=== PATIENT | female | born 1935 | race Caucasian/White ===

== ENCOUNTER 2018-10-09 10:17 | Observation (INO) | payer OTHER, BC ==
[2018-10-09 11:23] LABS: PLATELET COUNT 220 10^3/uL (150-400)
--- NOTE | 2018-10-09 11:51 | EDPHY ---
H & P Stated Complaint: facial droop last night Time Seen by Provider: 10/09/18 11:15 HPI/ROS: CHIEF COMPLAINT: Right facial droop HISTORY OF PRESENT ILLNESS: 82-year-old female with hypertension and CAD presents with right facial droop. Onset of moderate right facial droop at 1800 yesterday evening while sitting with her son. Associated with slurred speech. The episode lasted several minutes and then completely resolved. No extremity weakness or numbness. No prior similar symptoms. No alleviating or aggravating factors. Takes an aspirin daily. REVIEW OF SYSTEMS: complete 10 point ROS reviewed and is negative except for the noted elements in the HPI - Personal History Current Tetanus/Diphtheria Vaccine: Yes Current Tetanus Diphtheria and Acellular Pertussis (TDAP): Yes - Medical/Surgical History Hx Asthma: No Hx Chronic Respiratory Disease: No Hx Diabetes: No Hx Cardiac Disease: Yes Hx Renal Disease: No Hx Cirrhosis: No Hx Alcoholism: No Hx HIV/AIDS: No Hx Splenectomy or Spleen Trauma: No Other PMH: HTN, thyroidectomy, CAD with stents, hyperlipidemia, tonsilectomy - Social History Smoking Status: Never smoked Alcohol Use: Sober Drug Use: None - Physical Exam Exam: General Appearance: Alert, pleasant Eyes: Right pupil 4 mm, left pupil 3 mm, no conjunctival pallor or injection, EOMI ENT, Mouth: Mucous membranes moist Neck: Normal inspection Respiratory: Lungs are clear to auscultation Cardiovascular: Regular rate and rhythm Gastrointestinal: Abdomen is soft and nontender Neurological: Alert, oriented x3, cranial nerves II through XII intact, motor 5 /5, sensory intact to light touch Skin: Warm and dry Extremities: Nontender, no pedal edema Psychiatric: Mood and affect normal Constitutional: Initial Vital Signs Temperature (C) 36.6 C 10/09/18 10:27 Heart Rate 69 10/09/18 10:27 Respiratory Rate 16 10/09/18 10:27 Blood Pressure 179/124 H 10/09/18 10:27 O2 Sat (%) 94 10/09/18 10:27 O2 Delivery Mode Room Air Allergies/Adverse Reactions: adhesive tape Allergy (Verified 10/09/18 10:27) cat dander Allergy (Verified 10/09/18 13:42) Iodinated Contrast- Oral and IV Dye Allergy (Verified 10/09/18 10:25) morphine Allergy (Verified 10/09/18 13:42) Vomiting oxaprozin [From Daypro] Allergy (Verified 10/09/18 13:42) Vomiting Sulfa (Sulfonamide Antibiotics) Allergy (Verified 10/09/18 13:42) Vomiting Home Medications: Medication Instructions Recorded Aspirin [Aspirin 81mg (*)] 81 mg PO DAILY 10/09/18 C/E/Zn/Cu/OM3/DHA/EPA/LUT/ZEAX 1 each PO DAILY 10/09/18 [Preservision Areds 2 Softgel] Cholecalciferol Vit D3 [Vitamin D3 1,000 units PO DAILY 10/09/18 (*)] Isosorbide Mononitrate [Imdur 30 30 mg PO DAILY@12 10/09/18 mg (*)] Levothyroxine [Synthroid 88 mcg 88 mcg PO DAILY06 10/09/18 (*)] Loratadine 10 mg PO DAILY PRN 10/09/18 Metoprolol Tartrate [Lopressor 25 25 mg PO DAILY 10/09/18 mg (*)] Simvastatin [Zocor] 40 mg PO DAILY18 10/09/18 Clopidogrel Bisulfate [Plavix (*)] 75 mg PO DAILY #30 tab 10/10/18 Medical Decision Making - Diagnostics EKG Interpretation: EKG interpreted by me reveals normal sinus rhythm, rate 60, abnormal R-wave progression, T-wave inversion in aVL. Interpretation: Abnormal EKG ED Course/Re-evaluation: This ipt presents with a right facial droop yesterday, now resolved. c/w TIA. Neuro exam normal today. EKG: NSR, without ischemic changes. CT head: no acute ischemia or hemorrhage. Results d/w pt/family. Neuro exam remains normal. Took ASA today. The hospitalist service was consulted for admission for TIA w/u. Differential Diagnosis: Altered mental status including but not limited to hypoglycemia, infectious process, electrolyte abnormality, head injury, CVA, and intoxicants. - Data Points Laboratory Results: Laboratory Results 10/09/18 10:54 10/09/18 10:54 Medications Given: Discontinued Medications Aspirin (Aspirin) 81 mg PO DAILY [facility] Stop: 04/08/19 08:59 Last Admin: 10/10/18 08:43 Dose: 81 mg Atorvastatin Calcium (Lipitor) 20 mg PO DAILY@1800 [facility] Stop: 04/07/19 17:59 Last Admin: 10/09/18 17:58 Dose: 20 mg Cholecalciferol (Vitamin D) 1,000 units PO DAILY [facility] Stop: 04/08/19 08:59 Last Admin: 10/10/18 08:42 Dose: 1,000 units Clopidogrel Bisulfate (Plavix) 75 mg PO DAILY [facility] Stop: 04/08/19 08:59 Last Admin: 10/10/18 08:43 Dose: 75 mg Enoxaparin Sodium (Lovenox) 40 mg SC DAILY [facility] Stop: 04/08/19 08:59 Last Admin: 10/10/18 08:41 Dose: 40 mg Isosorbide Mononitrate (Imdur) 30 mg PO DAILY@12 [facility] Stop: 04/07/19 14:29 Last Admin: 10/10/18 12:19 Dose: 30 mg Levothyroxine Sodium (Synthroid) 88 mcg PO DAILY06 [facility] Stop: 04/08/19 05:59 Last Admin: 10/10/18 05:10 Dose: 88 mcg Metoprolol Tartrate (Lopressor) 25 mg PO DAILY [facility] Stop: 04/08/19 08:59 Last Admin: 10/10/18 08:42 Dose: 25 mg Multivitamins/Minerals (Preservision Areds2 Formula) 1 each PO DAILY [facility] Stop: 04/08/19 08:59 Last Admin: 10/10/18 08:42 Dose: 1 each Point of Care Test Results: Chemistry 10/09/18 11:24 POC Troponin I 0.01 ng/mL ng/mL (0.00-0.08) Departure - Departure Disposition: [facility] Acute Clinical Impression: Transient cerebral ischemia Qualifiers: Transient cerebral ischemia type: unspecified Qualified Code(s): G45.9 - Transient cerebral ischemic attack, unspecified Condition: Fair
[2018-10-09] MEDS ORDERED: ONDANSETRON DISINTEGRATING 4 MG TAB PO PRN (15:13)
[2018-10-09] MEDS ORDERED: ACETAMINOPHEN 325 MG TAB PO PRN (15:13)
[2018-10-09] MEDS ORDERED: ONDANSETRON 4 MG/2 ML VIAL IVP PRN (15:13)
--- NOTE | 2018-10-09 15:20 | CPEKG ---
Test Reason : OPEN Blood Pressure : / mmHG Vent. Rate : 060 BPM Atrial Rate : 060 BPM P-R Int : 179 ms QRS Dur : 098 ms QT Int : 420 ms P-R-T Axes : 049 -07 077 degrees QTc Int : 420 ms Sinus rhythm Abnormal R-wave progression, early transition Confirmed by Magy Leroy ([id number]) on 10/09/2018 3:19:55 PM Referred By: PHYSICIAN ED Confirmed By:Magy Leroy
--- NOTE | 2018-10-09 15:52 | GHP ---
[f rep st] HISTORY AND PHYSICAL DATE OF ADMISSION: 10/09/2018 CHIEF COMPLAINT: Right-sided facial droop and slurred speech yesterday evening. HISTORY OF PRESENT ILLNESS: The patient is a very nice 82-year-old female with a history of hypertension, hyperlipidemia, and coronary artery disease, who presented to the emergency room to get further evaluation of a right facial droop and slurred speech that occurred at 6:15 p.m. last night. Yesterday evening she was eating dinner with her son. He noticed that her speech was slurred and that she had a right facial droop. She said it lasted for approximately 1 minute and 15 seconds. It then completely resolved. She went and looked at herself in the mirror afterwards and said that she did not see any type of right facial droop and her speech was back to normal. She describes that her lips have been crooked for years and that this is her baseline. She denies any extremity weakness, no numbness. She denies any chest pain. Once in a while, she has shortness of breath while going up the steps, but otherwise does not have this. No changes in her appetite, vision, weight. Overall, she is feeling well. She mainly came for further evaluation because her son was concerned. She describes having a similar episode approximately a month ago where she had a facial droop and some slurred speech, but again that went away. Prior to this one other time, she has had no other symptoms like this. She is from the [facility] and is here visiting her son and family. PAST MEDICAL HISTORY: 1. Hypertension. 2. Coronary artery disease with stents placed in 1998. 3. Hyperlipidemia. 4. Macular degeneration. 5. Hypothyroidism. PAST SURGICAL HISTORY: 1. Thyroidectomy. 2. Tonsillectomy. SOCIAL HISTORY: She lives independently in the [facility]. She has been since 2000. She has 3 children. She does not smoke. She does not drink alcohol. 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 FAMILY HISTORY: Her mom of complications of a stroke at age 90. Her father from complications of a stroke at age 80. ALLERGIES: Adhesive tape; iodine contrast, both oral and IV; morphine allergy; sulfa; Daypro; and cats. HOME MEDICATIONS: Imdur 30 mg daily, aspirin 81 mg daily, loratadine 10 mg daily p.r.n., Synthroid 88 mcg daily, Lopressor 25 mg daily, Zocor 40 mg daily, vitamin D 1000 units daily. REVIEW OF SYSTEMS: A 10-point review of system was performed, was negative other than pertinent positives in the HPI and past medical history. PHYSICAL EXAM: GENERAL: The patient is an 82-year-old female who appears to be in overall good health. VITAL SIGNS: Blood pressure 158/98, heart rate 62, respiratory rate 14, O2 sats on room air 93%, temperature 36.6 Celsius. EYES: Pupils are equal and reactive. EOMs are intact. No conjunctival injection noted. ENT: Normal ears. Hearing intact. NECK: Trachea is midline. CARDIOVASCULAR: She is in a regular rate and rhythm. No murmurs, rubs, or gallops noted. CHEST/LUNGS: Normal respiratory effort. Clear without wheezing , rales, rhonchi. ABDOMEN: Soft, nontender. SKIN: No rashes, ulcers noted. MUSCULOSKELETAL: She has equal upper and lower extremity strength. PSYCHIATRIC : She is alert and oriented. Normal mood, affect. Normal judgment, insight. Normal memory. NEURO: She is alert and oriented to person, place, time, situation. [place] are equal bilaterally. No pronator drift is noted. She can do malt-iq-wrtp on both sides without any difficulty. She is ambulating without any difficulty. Tongue is midline. Shoulder shrug is equal. DATA REVIEWED: CBC shows a white blood cell count of 6.52, hemoglobin 16, hematocrit 40, platelet count 220. Chemistry: Sodium 137, potassium 4.3, chloride 103, CO2 26, BUN 13, creatinine 0.7, glucose 92. Troponin 0.01. Head CT shows no acute intracranial findings. She has diffuse cerebral atrophy with periventricular and subcortical low attenuation consistent with chronic microvascular ischemic gliosis. ASSESSMENT/PLAN: 1. Neurologic deficits that occurred for approximately 1 minute, including slurred speech and a right facial droop, most likely consistent with a transient ischemic attack. Will have her monitored on mixed crop and livestock farmer for the next 24 hours. Will order an echocardiogram with bubble study. Will get an MRI, as well as carotid Doppler studies. At this time, we will avoid any studies with any dye. The patient said she has had severe reactions to dyes in the past. I have asked for Neurology to see her. Will allow for permissive hypertension. Will ask Physical Therapy, Occupational Therapy, and Speech Therapy to see her. Check a lipid panel in the morning. 2. Hypertension. Blood pressure was quite high during my evaluation. Resume her metoprolol and Imdur. 3. Hypothyroidism. Resume Synthroid. 4. Hyperlipidemia. Check a lipid panel and resume statin therapy. 5. Deep venous thrombosis prophylaxis, high risk. We will initiate low molecular weight heparin. 6. Code Status: Do Not Resuscitate. 7. Length of stay. She will likely require less than a 2-midnight stay, which will make her observation status. /[id number]/MODL MTDD
[2018-10-09] MEDS: ISOSORBIDE MONONITRATE 30 MG TAB.SR PO SCH (16:08)
[2018-10-09] MEDS ORDERED: ATORVASTATIN CALCIUM 20 MG TAB PO SCH (18:00)
[2018-10-10] MEDS ORDERED: LEVOTHYROXINE 88 MCG TAB PO SCH (06:00)
[2018-10-10] MEDS ORDERED: PRESERVISION AREDS2 FORMULA EYE VIT 1 EACH PO SCH (09:00)
[2018-10-10] MEDS ORDERED: CLOPIDOGREL BISULFATE 75 MG TAB PO SCH (09:00)
[2018-10-10] MEDS ORDERED: CHOLECALCIFEROL VIT D3 1,000 UNITS TAB PO SCH (09:00)
[2018-10-10] MEDS ORDERED: ASPIRIN 81 MG CHEWABLE TAB PO SCH (09:00)
[2018-10-10] MEDS ORDERED: ENOXAPARIN 40 MG/0.4 ML SYR SC SCH (09:00)
[2018-10-10] MEDS ORDERED: CETIRIZINE 10 MG TAB PO PRN (09:00)
[2018-10-10] MEDS ORDERED: METOPROLOL TARTRATE 25 MG TAB PO SCH (09:00)
--- NOTE | 2018-10-10 12:05 | GCON ---
[f rep st] CONSULTATION NEUROLOGIC CONSULTATION REFERRING PHYSICIAN: Uvaldo Slater MD The patient is an 82-year-old woman who I am asked to see in neurologic consultation regarding an epi sode of slurred speech and some right facial drooping. The patient is in the room and a good histori an and her son-in-law is there as well who witnessed the event. I have reviewed the emergency room r ecord, as well as the history and physical. The patient tells me that some number of months ago, she remembers having temporary trouble speaking on the phone, but did not think much of it, and it was q uite brief. She also at some point in the past noticed that she had a mild drooping of her right arjun e of her face, but cannot remember when, did not ever have any specific recognized stroke or TIA othe rwise. With the event that occurred 2 nights ago around 6:00 p.m., she was having dinner and then st arted to notice some slurring of her speech and her son-in-law could notice a subtle droop to the rig ht side of the face. This was a dysarthric speech, rather than aphasia. It probably lasted 1 or 2 m inutes and then resolved. She rested and was doing fine yesterday morning, but they decided to come to the hospital after reading about potential risk of stroke. The patient takes aspirin at baseline. She denies any recent acute alleviating or exacerbating factors and all symptoms have now fully res olved. There are not associated symptoms of numbness or weakness. There were no complaints of chest pain, palpitations, or shortness of breath. No recent illnesses. REVIEW OF SYSTEMS: Completed and unremarkable, except for that noted above. PAST MEDICAL HISTORY: As outlined above, but also history of coronary disease with prior stenting, h ypertension, hyperlipidemia. No history of smoking or diabetes. She has a history of macular degene ration and hypothyroidism as well. SOCIAL HISTORY: She normally lives independent setting in [place]. since 2000. She bullock s 3 children. No smoking or alcohol. 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 FAMILY HISTORY: There is a history of stroke in her mother late in life and father from stroke in his 80s. MEDICATIONS: At home, she was taking daily aspirin regularly, as well as Zocor. Other home medicati ons, include Imdur, loratadine, Synthroid, Lopressor, vitamin D. Here in the hospital, she continues on daily aspirin and atorvastatin, is on Lovenox for DVT prophyla xis. ALLERGIES: Adhesive tape, iodine, morphine, sulfa, Daypro, and cat dander. PHYSICAL EXAMINATION: VITAL SIGNS: Blood pressure is 142/72, pulse of 70, respirations 24, she has had some mild desaturation at times on room air. Temperature 36.7. GENERAL: She is well developed, in no acute distress. EYES: Clear. NECK: Supple with no bruits or masses. CARDIAC: Regular rat e and rhythm with no murmur. EXTREMITIES: No cyanosis or edema. NEUROLOGIC: She has an NIH Stroke Scale of 1 for the mild right facial droop, which we believe is old. She is alert and oriented to p erson, place, time, and general situation. She has normal concentration, attention, and general fund of knowledge, as well as preservation of recent and remote memory, and expresses no bizarre thoughts , delusions, or hallucinations. Her language is fluent. Pupils 2 mm and reactive. Extraocular move ments are intact. No visual field loss. I cannot view the fundi adequately. Normal facial sensatio n and a very subtle right lower facial droop around the lip. Hearing is diminished, but she wears he aring aid. Palate elevates symmetrically and tongue protrudes midline. No weakness of head turning or shoulder shrug. Motor exam: Normal muscle bulk and tone with 5/5 strength for her age. Sensatio n preserved is preserved for temperature and light touch. No ataxia on [id number]-qx-ojml. Her gait is steady and independent. Reflexes are 2+ and symmetric with no pathologic reflexes. LABORATORY/IMAGING: Unremarkable CBC. LDL cholesterol is 60. Otherwise unremarkable electrolytes. No arrhythmia seen on monitors. I have reviewed the head CT, as well as MRI and carotid Doppler. I showed the MRI to the patient and her son-in-law and pointed out the old lacunar infarction in the left head of the caudate, as well a s the extensive degree of white matter disease indicative of small-vessel disease. There are no sign ificant stenoses in the carotid arteries. No hemorrhage seen on head CT. IMPRESSION: The patient is 82 years old and has experienced a transient ischemic attack. This is pe rhaps the second transient ischemic attack and also has a history of asymptomatic stroke in the left head of the caudate, which probably accounts for that mild right lower facial droop. No evidence of acute stroke. She does have extensive vascular disease bilaterally with multiple risk factors that i nclude age, hypertension, hyperlipidemia, coronary artery disease. This event occurred while she was taking aspirin 81 mg. She is at significant risk of recurrent stro ke, particularly short-term, and will have long-term risk for stroke. Based on most recent data, I a m recommending Plavix 75 mg daily, in addition to the aspirin for 21 days and then back to a single a nti-platelet therapy with aspirin alone. She has echocardiogram pending, which I recommend. If she otherwise is doing well, she can be discharged. She does not live here, so she would not foll ow up with me, but was advised to follow up with her doctor back in [place] and medical record davion shetty be sent to that primary care, so he is in the loop on what is happening and the recommendation for long-term management strategies. She and her son-in-law expressed understanding of the plan and are in agreement. /[id number]/MODL
[2018-10-10] MEDS: ISOSORBIDE MONONITRATE 30 MG TAB.SR PO SCH (12:19)
--- NOTE | 2018-10-10 12:38 | ASMTCMCOM ---
CM Note CM Note Notes: Reviewed chart, pt visiting dtr from [place]. Came to hospital for a likely TIA, now resolved. 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 PT cleared pt for home, will dc home with dtr and pedro support. CM available for any changes. DC Plan: Independent Date Signed: 10/10/2018 12:38 PM Electronically Signed By:Ana Peralta RN
--- NOTE | 2018-10-10 14:45 | PDDCSUM ---
Discharge Summary Discharge Summary: 82 yo female admitted for slurred speech. She was admitted. Imaging including MRI brain, CT brain did not show acute findings. MRI was c/w old lacunar stroke and extensive white matter disease. Carotid US did not show significant corotid disease. Lipid panel was at goal. she had this event while on a baby aspirin. She was evaluated by Dr. Mckeon with Neurology and has been cleared for discharge. In addition to the Aspirin 81mg she has been started on daily Plavix. The recommendation per Neurology is for 21 day course of Plavix in addition to the Aspirin, f/u with her PCP, and consider decreasing back to Aspirin alone. She will not be back home until the end of October and therefore I will provide her with a 30 day supply of Plavix she does have a hx of prior stroke as evidence by an old lacunar stroke on MRI and chronic left facial droop As far as her hx of HTN and elevated blood pressure, the auto cuff has reported HTN but on manual checks, BP is appropriate and under 140 systolic. She is being asked to check her BP's at home and document and if elevated to f/u with her daughters PCP. DDX: TIA HTN HLD CAD Hard of hearing Exam: NAD AAOX3 CHRONIC LEFT FACIAL/LIP DROOP RRR CTA B MEDS: SEE MED REC TOTAL TIME SPENT ON D/C IS 35 MINS
[2018-10-10 15:19] VITALS: BP 138/78
--- NOTE | 2018-10-10 18:07 | ECHO ---
[email or web address] [address] [address] Main: [phone] Fax: Transthoracic Echocardiogram Name: GILL TOMAS MR#: [id number] Study Date: 10/10/2018 Study Time: 09:21 AM Date of : 1935 Age: 82 year(s) Height: 165.1 cm (65 in.) Weight: 81.65 kg (180 lb.) BSA: 1.89 m2 Gender: Female Examination: Echo with Agitated Saline Indication: concern for stroke Image Quality: Adequate Contrast: Requested by: Alley Goodman BP: 142 mmHg/72 mmHg Heart Rate: Rhythm: Indication: concern for stroke Procedure Staff Associate Application Developer: Jeny Mercado [facility] Reading Physician: Merna Iglesias MD Requesting Provider: Conclusions: Normal size left ventricle. No LV hypertrophy. Normal global systolic LV function. EF is 61 %. No regional wall motion abnormality. Grade 2 diastolic dysfunction (pseudonormalized LV filling pattern). Normal size right ventricle. Normal RV function. The left atrium is mildly dilated. An agitated saline study was performed and was negative for intracardiac shunting. Mild mitral valve regurgitation is present. Moderate to severe aortic regurgitation. Right ventricular systolic pressure measures 46mmHg. Moderate tricuspid regurgitation is present. No pericardial effusion. Measurements: Chambers Valvular Assessment AV/MV Valvular Assessment TV/PV Normal Normal Normal Name Value Range Name Value Range Name Value Range Ao Shraddha (2D): 2.9 cm (1.4 cm-2.6 AV Vmax: 1.54 m/s (1 m/s-1.7 TR Vmax: 3.20 mm/s ( - ) cm) m/s) TR PGmax: 41 mmHg ( - ) IVSd (2D): 0.9 cm (0.6 cm-1.1 AV maxP mmHg ( - ) syst. PAP: 46 mmHg ( - ) cm) AV meanP mmHg ( - ) PV Vmax: 1.02 m/s (0.6 m/s-0.9 LVDd (2D): 4.6 cm (3.9 cm-5.3 ALLA (VTI): 1.5 cm ( - ) m/s) cm) AR (PHT): 618 ms ( - ) PV PGmax: 4 mmHg ( - ) LVDs (2D): 3.2 cm (2.1 cm-4 MV E Vmax: 0.62 m/s ( - ) cm) MV A Vmax: 0.85 m/s ( - ) LVPWd (2D): 0.9 cm ( - ) MV E/A: 0.73 ( - ) LVOTd 1.7 cm 1.7 cm mm MV PHT: 0.093 s ( - ) Patient: GILL TOMAS Study Date: 10/10/2018 Page 1 of 2 09:21 AM LVEF (BP): 61 % (>=55 %) MVA (PHT): 2.4 s ( - ) RVDd(2D): 3.2 cm (1.9 cm-3.8 cmmm) Continued Measurements: Chambers Valvular Assessment AV/MV Valvular Assessment TV/PV Name Value Name Value Name Value LADs: 2.7 cm MV DecTime: 303 m/s CVP (est.): 5 mmHg LADs Lon.6 cm MV E' Septal: 0.07 m/s LA Area: 19.8 cm2 MV E/E' Septal: 9.40 LA Volume: 70 ml MV E/E' Lateral: 10.70 LA Volume Index: 37.0 ml/m2 AR Vmax: 4.74 cm/s RA Area: 17.3 cm2 Additional Vessels Name Value Ao Ascendin.2 cm Inferior Vena Cava: 1.4 cm Findings: Left Ventricle: Normal size left ventricle. No LV hypertrophy. Normal global systolic LV function. EF is 61 %. No regional wall motion abnormality. Grade 2 diastolic dysfunction (pseudonormalized LV filling pattern). Right Ventricle: Normal size right ventricle. Normal RV function. Left Atrium: The left atrium is mildly dilated. An agitated saline study was performed and was negative for intracardiac shunting. Right Atrium: The right atrium is normal in size. Mitral Valve: The mitral valve is normal in appearance and function. Mild mitral valve regurgitation is present. No mitral stenosis is present. Aortic Valve: The aortic valve is tri-leaflet. Mild aortic cusp calcification is noted. No aortic valve stenosis is present. Moderate to severe aortic regurgitation. Tricuspid Valve: Right ventricular systolic pressure measures 46mmHg. The pulmonary artery pressure is mild to moderately increased. Moderate tricuspid regurgitation is present. Pulmonic Valve: The pulmonic valve is normal in appearance and function. Aorta: The aorta is normal. Normal size aortic root measuring 2.9 cm. Normal size ascending aorta measuring 3.2 cm. IVC: The IVC is normal sized. Pericardium: No pericardial effusion. (No Signature Object) Patient: GILL TOMAS Study Date: 10/10/2018 Page 2 of 2 09:21 AM [id number]
== END 2018-10-10 15:36 | disposition home or self-care (01) ==
LOC: F3N 13:09
PROVIDERS: ADMIT Family Medicine; ATTEND Family Medicine
DX: G45.8 Other transient cerebral ischemic attacks and related syndromes (principal); I69.392 Facial weakness following cerebral infarction; Z79.82 Long term (current) use of aspirin; I10 Essential (primary) hypertension; E78.5 Hyperlipidemia, unspecified; I25.10 Atherosclerotic heart disease of native coronary artery without angina pectoris; Z95.5 Presence of coronary angioplasty implant and graft; E89.0 Postprocedural hypothyroidism; H35.30 Unspecified macular degeneration
CPT/HCPCS: 70450; 70551; 92523; 92610; 93005; 93306; 93880; 96372; 97161; 97165; 99285; G0378; J1650; 84484-ER